=== PATIENT | female | born 1970 | race Caucasian/White ===

== ENCOUNTER 2018-11-19 06:17 | Day surgery (SDC) | payer OTHER ==
[~2018-11-19] VITALS: Ht 165.1 cm; Wt 198.8 kg
[~2018-11-19 06:17] MED LIST: ALBU90OI INH; ALEVE220 MG PO; DOCU100 PO; Gas Relief 8080 MG PO; HYDACE5 PO; IBUP800 PO; Milk Of Ma400 MG/5 M PO; PROM25 PO; Percocet 5-3251 EACH PO; Ultram50 MG PO; Zofran Odt4 MG SL
[2018-11-19] MEDS ORDERED: Aygestin5 MG PO (06:58)
[2018-11-19] MEDS ORDERED: Naproxen250 MG PO (06:59)
[2018-11-19] MEDS ORDERED: ALLEGRA ALLERGY60 MG (07:01)
--- NOTE | 2018-11-19 08:12 | NUR ---
11/19/18 0812 Yaneth Diallo PT WITH SCRATCHES OVER THE RIGHT UPPER QUADRANT OF THE ABDOMEN. SURGEON MADE AWARE.
== END 2018-11-19 10:10 | disposition home or self-care (01) ==
LOC: ORSCSDS 06:17
PROVIDERS: Obstetrics & Gynecology
PROC: 0UT24ZZ Resection of Bilateral Ovaries, Percutaneous Endoscopic Approach (ICD-10-PCS; principal; 2018-11-19 07:30)
DX: Z15.02 Genetic susceptibility to malignant neoplasm of ovary (principal); N80.3 Endometriosis of pelvic peritoneum; Z87.891 Personal history of nicotine dependence; Z79.899 Other long term (current) drug therapy
CPT/HCPCS: 88305; J0461; J0690; J1100; J1885; J2250; J2405; J2704; J2710; J3010